=== PATIENT | female | born 1940 | race Caucasian/White ===

== ENCOUNTER → 2017-10-08 | Outpatient (CLI) | payer MEDICARE ==
[~2017-10-08] MED LIST: CHEWABLE ASPIRI81 MG PO; FIBER LAXATIVE500 MG PO; GLUCOSAMINE & C1 TA2 PO; HYDROCHLOROTH12.5 M1 PO; KEFLEX500 M1 PO; VYTORIN 10 MG-21 TAB PO
[2017-10-08 09:13] LABS: BUN 31 mg/dL (7-18)
[2017-10-08 09:17] LABS: GFR (ESTIMATED) 54 ML/MIN (59-)
== END ==
LOC: LAB 07:49
PROVIDERS: Nurse Practitioner Family
DX: R41.3 Other amnesia (principal); I10 Essential (primary) hypertension; E78.5 Hyperlipidemia, unspecified